=== PATIENT | female | born 1975 | race Caucasian/White ===

== ENCOUNTER 2017-02-20 05:51 | Emergency (ER) | payer MEDICAID ==
[~2017-02-20 05:51] MED LIST: APAP/HYDROCODON1 T13 PO; BACDS PO; COL100 PO; FERG PO; FLA250 PO; FLO4 PO; IMITREX PO; LAC PO; PHE25 PO; PRI20 PO; SUMATRIPTAN SUC50 M1 PO; [UNRECOGNIZED DRUG - OTHER]; [UNRECOGNIZED DRUG - OTHER] PO
[2017-02-20 08:01] VITALS: BP 145/77
== END 2017-02-20 08:01 | disposition home or self-care (01) ==
LOC: ED 05:51
DX: G43.909 Migraine, unspecified, not intractable, without status migrainosus (principal); Z88.1 Allergy status to other antibiotic agents; Z88.8 Allergy status to other drugs, medicaments and biological substances
CPT/HCPCS: J3030

== ENCOUNTER 2017-03-08 18:20 | Emergency (ER) | payer MEDICAID ==
[2017-03-08 19:40] VITALS: BP 149/106
== END 2017-03-08 19:40 | disposition home or self-care (01) ==
LOC: ED 18:20
DX: G43.909 Migraine, unspecified, not intractable, without status migrainosus (principal); R03.0 Elevated blood-pressure reading, without diagnosis of hypertension; Z88.0 Allergy status to penicillin; Z88.1 Allergy status to other antibiotic agents; Z88.8 Allergy status to other drugs, medicaments and biological substances; Z79.82 Long term (current) use of aspirin; Z79.1 Long term (current) use of non-steroidal anti-inflammatories (NSAID)
CPT/HCPCS: J3030; Q0163

== ENCOUNTER 2017-07-02 15:38 | Emergency (ER) | payer MEDICAID ==
[~2017-07-02] VITALS: Ht 162.6 cm; Wt 74.5 kg
[2017-07-02 16:33] VITALS: BP 130/85
== END 2017-07-02 18:54 | disposition home or self-care (01) ==
LOC: ED 15:38
DX: G43.909 Migraine, unspecified, not intractable, without status migrainosus (principal); R03.0 Elevated blood-pressure reading, without diagnosis of hypertension; Z88.0 Allergy status to penicillin; Z88.1 Allergy status to other antibiotic agents; Z88.8 Allergy status to other drugs, medicaments and biological substances
CPT/HCPCS: J3030

== ENCOUNTER 2017-07-30 21:51 | Emergency (ER) | payer MEDICAID ==
[2017-07-31 00:14] VITALS: BP 133/85
== END 2017-07-31 00:14 | disposition home or self-care (01) ==
LOC: ED 21:51
DX: G43.909 Migraine, unspecified, not intractable, without status migrainosus (principal); Z90.49 Acquired absence of other specified parts of digestive tract; Z88.0 Allergy status to penicillin; Z88.8 Allergy status to other drugs, medicaments and biological substances
CPT/HCPCS: J3030

== ENCOUNTER 2017-08-19 09:47 | Emergency (ER) | payer MEDICAID ==
[2017-08-19 10:09] VITALS: BP 139/90
== END 2017-08-19 12:18 | disposition home or self-care (01) ==
LOC: ED 09:47
DX: G43.909 Migraine, unspecified, not intractable, without status migrainosus (principal); R03.0 Elevated blood-pressure reading, without diagnosis of hypertension; Z88.0 Allergy status to penicillin; Z88.1 Allergy status to other antibiotic agents; Z88.8 Allergy status to other drugs, medicaments and biological substances
CPT/HCPCS: J0780; J3030

== ENCOUNTER 2017-10-16 07:22 | Emergency (ER) | payer MEDICAID ==
[~2017-10-16] VITALS: Ht 152.4 cm; Wt 74.9 kg
[2017-10-16 08:27] LABS: microscopic required? YES; urine erythrocyte 3+ (NEGATIVE)
[2017-10-16 10:30] VITALS: BP 135/94
== END 2017-10-16 09:50 | disposition home or self-care (01) ==
LOC: ED 07:22
PROVIDERS: Emergency Medicine
DX: G43.909 Migraine, unspecified, not intractable, without status migrainosus (principal); N39.0 Urinary tract infection, site not specified; Z88.0 Allergy status to penicillin; Z88.1 Allergy status to other antibiotic agents; Z88.8 Allergy status to other drugs, medicaments and biological substances
CPT/HCPCS: J3030

== ENCOUNTER 2019-04-02 06:23 | Emergency (ER) | payer SELFPAY ==
[~2019-04-02] VITALS: Ht 154.9 cm; Wt 80.7 kg
[2019-04-02 06:27] VITALS: Ht 154.9 cm; Wt 80.7 kg
[2019-04-02 07:41] LABS: PLATELET COUNT 356 x10^3mcL (130-400)
[2019-04-02 07:45] LABS: BASOPHIL % 0 % (0-2); RED CELL DISTRIBUTION WIDTH 17.2 % (11.5-14.5)
[2019-04-02 07:48] LABS: CALCIUM 8.8 mg/dL (8.5-10.1); CARBON DIOXIDE 23.4 mmol/L (21-32); CHLORIDE SERUM 100 mmol/L (98-107); CREATININE SERUM 0.9 mg/dL (0.6-1.0); GFR1 > 60 mL/min; GLUCOSE SERUM 146 mg/dL (74-106); POTASSIUM SERUM 3.6 mmol/L (3.5-5.1); SODIUM SERUM 137 mmol/L (136-145)
[2019-04-02 08:02] LABS: ALBUMIN 3.3 g/dL (3.4-5.0); ALKALINE PHOSPHATASE 111 U/L (46-116); ALT/SGPT 44 U/L (14-59); AST/SGOT 43 U/L (15-37); BILIRUBIN TOTAL 0.3 mg/dL (0.20-1.00); T4(THYROXINE) 8.5 ug/dL (4.7-13.3)
[2019-04-02 08:16] LABS: microscopic required? YES; urine erythrocyte 3+ (NEGATIVE)
[2019-04-02 10:35] VITALS: BP 103/67
== END 2019-04-02 11:15 | disposition home or self-care (01) ==
LOC: ED 06:23
PROVIDERS: Emergency Medicine
DX: N39.0 Urinary tract infection, site not specified (principal); G43.909 Migraine, unspecified, not intractable, without status migrainosus; D64.9 Anemia, unspecified; E66.9 Obesity, unspecified; Z68.33 Body mass index [BMI] 33.0-33.9, adult; Z90.89 Acquired absence of other organs; Z88.0 Allergy status to penicillin; Z88.1 Allergy status to other antibiotic agents; Z88.6 Allergy status to analgesic agent; Z88.8 Allergy status to other drugs, medicaments and biological substances
CPT/HCPCS: 82962; J1885; J1956; J3030; J7030; J7040; Q0092

== ENCOUNTER 2019-10-12 16:42 | Emergency (ER) | payer SELFPAY ==
[~2019-10-12] VITALS: Ht 149.9 cm; Wt 77.1 kg
[2019-10-12 16:55] VITALS: Ht 149.9 cm; Wt 77.1 kg
[2019-10-12 19:27] VITALS: BP 114/72
== END 2019-10-12 19:27 | disposition home or self-care (01) ==
LOC: ED 16:42
DX: N12 Tubulo-interstitial nephritis, not specified as acute or chronic (principal); Z88.0 Allergy status to penicillin; Z88.1 Allergy status to other antibiotic agents
CPT/HCPCS: J2550; J3030